=== PATIENT | female | born 1945 | race Caucasian/White ===

== ENCOUNTER → 2021-03-11 14:42 | Outpatient (CLI) | payer MEDICARE, SELFPAY ==
--- NOTE | ~2021-03-11 | DEXA_ITS ---
Bone Density Report Name: Aliyah Hamm Age: 75 Sex: Female Ethnicity: White Date of : 1945 Indication: osteopenia; parental hip fracture; postmenopausal Referring Provider: Chandana, Taina Issa Study: Bone densitometry was performed. Exam Date: March 11, 2021 Accession number: [id number] Bone Density: Region BMD T-score Z-score Classification AP Spine (L1-L4) 0.871 -1.6 0.8 Osteopenia Femoral Neck (Left) 0.747 -0.9 1.1 Normal Total Hip (Left) 0.882 -0.5 1.2 Normal Femoral Neck (Right) 0.742 -1.0 1.1 Normal Total Hip (Right) 0.880 -0.5 1.2 Normal Total Hip Mean 0.881 -0.5 1.2 Normal World Health Organization criteria for BMD impression classify patients as: Normal (T-score at or above -1.0), Osteopenia (T-score between -1.0 and -2.5), or Osteoporosis (T-score at or below -2.5). 10-year Fracture Risk(1): Major Osteoporotic Fracture 14% Hip Fracture 5.3% Reported Risk Factors: [place] (), Neck BMD=0.742, BMI=23.2, parental fracture (1) FRAX(R) Version 3.08. Fracture probability calculated for an untreated patient. Fracture probability may be lower if the patient has received treatment. Previous Exams: Region Exam Age BMD T-score BMD Change BMD Change Date g/cm2 vs Baseline vs Previous AP Spine(L1-L4) 03/11/2021 75 0.871 -1.6 -0.118* -0.009 09/09/2018 72 0.880 -1.5 -0.109* -0.002 03/20/2016 70 0.882 -1.5 -0.107* 0.015 03/17/2014 68 0.867 -1.6 -0.122* -0.004 02/23/2011 65 0.872 -1.6 -0.118* -0.043* 02/18/2009 63 0.914 -1.2 -0.075* -0.009 02/17/2008 62 0.923 -1.1 -0.066* -0.066* 02/11/2005 59 0.989 -0.5 Total Hip(Left) 03/11/2021 75 0.882 -0.5 -0.156* 0.014 09/09/2018 72 0.868 -0.6 -0.169* -0.089* 03/20/2016 70 0.957 0.1 -0.081* 0.062* 03/17/2014 68 0.895 -0.4 -0.143* -0.026 02/23/2011 65 0.920 -0.2 -0.117* 0.015 02/18/2009 63 0.905 -0.3 -0.133* -0.051* 02/17/2008 62 0.956 0.1 -0.081* -0.081* 02/11/2005 59 1.038 0.8 Total Hip(Right) 03/11/2021 75 0.880 -0.5 -0.166* 0.004 09/09/2018 72 0.876 -0.5 -0.170* -0.063* 03/20/2016 70 0.938 0.0 -0.107* -0.031* 03/17/2014 68 0.970 0.2 -0.076* 0.057* 02/23/2011 65 0.913 -0.2 -0.132* 0.004 02/18/2009 63 0.909 -0.3 -0.136* -0.049*
== END ==
PROVIDERS: PCP Family Medicine; Visit Provider Family Medicine
DX: M85.88 Other specified disorders of bone density and structure, other site (principal)
CPT/HCPCS: 77080

== ENCOUNTER → 2023-07-29 13:11 | Outpatient (CLI) | payer MEDICARE, SELFPAY ==
--- NOTE | ~2023-07-29 | DEXA_ITS ---
Bone Density Report Name: JEWELS GOMEZ Age: 77 Sex: Female Ethnicity: White Date of : 1945 Indication: osteopenia; parental hip fracture; postmenopausal Referring Provider: Chandana, Taina Issa Study: Bone densitometry was performed. Exam Date: July 29, 2023 Accession number: [id number] Bone Density: Region BMD T-score Z-score Classification AP Spine (L1-L4) 0.880 -1.5 1.0 Osteopenia Femoral Neck (Left) 0.726 -1.1 1.0 Osteopenia Total Hip (Left) 0.872 -0.6 1.3 Normal Femoral Neck (Right) 0.724 -1.1 1.0 Osteopenia Total Hip (Right) 0.867 -0.6 1.3 Normal Total Hip Mean 0.870 -0.6 1.3 Normal World Health Organization criteria for BMD impression classify patients as: Normal (T-score at or above -1.0), Osteopenia (T-score between -1.0 and -2.5), or Osteoporosis (T-score at or below -2.5). 10-year Fracture Risk(1): Major Osteoporotic Fracture 17% Hip Fracture 8.0% Reported Risk Factors: [place] (), Neck BMD=0.724, BMI=23.7, parental fracture (1) FRAX(R) Version 3.08. Fracture probability calculated for an untreated patient. Fracture probability may be lower if the patient has received treatment. Previous Exams: Region Exam Age BMD T-score BMD Change BMD Change Date g/cm2 vs Baseline vs Previous AP Spine(L1-L4) 07/29/2023 77 0.880 -1.5 -0.109* 0.009 03/11/2021 75 0.871 -1.6 -0.118* -0.009 09/09/2018 72 0.880 -1.5 -0.109* -0.002 03/20/2016 70 0.882 -1.5 -0.107* 0.015 03/17/2014 68 0.867 -1.6 -0.122* -0.004 02/23/2011 65 0.872 -1.6 -0.118* -0.043* 02/18/2009 63 0.914 -1.2 -0.075* -0.009 02/17/2008 62 0.923 -1.1 -0.066* -0.066* 02/11/2005 59 0.989 -0.5 Total Hip(Left) 07/29/2023 77 0.872 -0.6 -0.165* -0.009 03/11/2021 75 0.882 -0.5 -0.156* 0.014 09/09/2018 72 0.868 -0.6 -0.169* -0.089* 03/20/2016 70 0.957 0.1 -0.081* 0.062* 03/17/2014 68 0.895 -0.4 -0.143* -0.026 02/23/2011 65 0.920 -0.2 -0.117* 0.015 02/18/2009 63 0.905 -0.3 -0.133* -0.051* 02/17/2008 62 0.956 0.1 -0.081* -0.081* 02/11/2005 59 1.038 0.8 Total Hip(Right) 07/29/2023 77 0.867 -0.6 -0.179* -0.013 03/11/2021 75 0.880 -0.5 -0.166* 0.004 09/09/2018 72 0.876 -0.5 -0.170* -0.063* 03/20/2016 70 0.938 0.0 -0.107* -0.031*
== END ==
PROVIDERS: PCP Family Medicine; Visit Provider Family Medicine
DX: M85.89 Other specified disorders of bone density and structure, multiple sites (principal); Z78.0 Asymptomatic menopausal state
CPT/HCPCS: 77080